=== PATIENT | male | born 1945 | race Caucasian/White ===

== ENCOUNTER 2016-08-18 23:01 | Emergency (ER) | payer MEDICARE, BC ==
[~2016-08-18 23:01] MED LIST: ACET500CAP PO; ALKA SELTZER COLD OR; AMIT100 PO; AMIT50 PO; AMPI500 PO; ASA5GR PO; ASAB PO; ASABAYER PO; B121000P IM/SC; BIOTIN10 MG PO; CAT1 PO; CETIRIZINE5 MG PO; CIP5 PO; CO Q-10100 MG PO; CYANO1000T PO; DIOVAN HC2 PO; DIOVAN320 MG PO; FENOFIBRIC ACID PO; FISH OIL1200 MG PO; FISH-EPA1000 MG PO; FLAG500TAB PO; FLOMAX4 PO; FLORASTOR250 MG PO; GLUCCHONDR PO; GLUCOPHAGE1000 MG PO; GLUCOSAMINE; GLUCOTRO10 PO; GLUCPH PO; HALF81 PO; HYDROCHLOROT12.5 MG PO; HYDROCHLOROT25 MG PO; INSNOV7030 SC; INSNOVN SC; KLONOPIN PO; KLOR-CON M2020 MEQ PO; LEVAQUIN5T PO; LOP25 PO; MAXIMUM D3 PO; METAMUCIL CAN7 OZ PO; METAMUCIL PO; METOPROLOL 50MG PO; METPAKSF PO; MIRAPEX1 MG PO; MUSCLE RELAXER OR; NASACORTAQ NAS; NEXIUM; NEXIUM20 M1 PO; NEXIUM40 PO; NIASPAN500 PO; NORCO1 TA2 PO; NORV5 PO; PARKINSON'S MED PO; PLAVIX PO; POTASSIUM; POTASSIUM OTC PO; POTASSIUM PO; PREV30 PO; PRIM50B PO; PRIMIDONE; PROSCAR5 PO; RED YEAS1 OR; SAW PALMETT2 PO; SAW PALMETTO PO; SEPTRA DS1 TAB PO; SIN25 PO; TOPXL25 PO; TOPXL50 PO; TRILIPIX135 MG PO; VITAMIN D1000 UNI1 PO; VITAMIN D31000 UNIT PO; WELLBUTRIN; Z300 PO; ZOL100 PO; ZOL50 PO; ZYRTEC ALLGY10 MG PO; [UNRECOGNIZED DRUG - CODE] PO; [UNRECOGNIZED DRUG - OTHER] OR; [UNRECOGNIZED DRUG - OTHER] PO; [UNRECOGNIZED DRUG - OTHER] PO; [UNRECOGNIZED DRUG - OTHER] PO
[2016-12-23] MEDS ORDERED: BUSPAR30 MG PO (13:55)
[2016-12-23] MEDS ORDERED: THERGRANM PO (14:00)
[2016-12-23] MEDS ORDERED: INSNOVR SC (14:02)
[2016-12-23] MEDS ORDERED: SYMBICORT 160/41 INH INH (14:03)
[2016-12-23] MEDS ORDERED: ANTIBIOTIC PO (14:08)
[2017-01-03] MEDS ORDERED: TOPXL50 PO (08:20)
[2017-01-03] MEDS ORDERED: L40 PO (08:24)
[2017-01-03] MEDS ORDERED: KDUR20 PO (08:25)
[2017-01-03] MEDS ORDERED: C5 PO (08:25)
[2017-01-03] MEDS ORDERED: NORCO1 TAB PO (08:25)
== END 2016-08-18 23:09 | disposition home or self-care (01) ==
LOC: ER 23:01
DX: M25.572 Pain in left ankle and joints of left foot (principal); J44.9 Chronic obstructive pulmonary disease, unspecified; I10 Essential (primary) hypertension; K21.9 Gastro-esophageal reflux disease without esophagitis; E11.9 Type 2 diabetes mellitus without complications; I25.10 Atherosclerotic heart disease of native coronary artery without angina pectoris; Z87.891 Personal history of nicotine dependence; Z88.8 Allergy status to other drugs, medicaments and biological substances; Z79.82 Long term (current) use of aspirin; Z79.899 Other long term (current) drug therapy; Z79.84 Long term (current) use of oral hypoglycemic drugs; Z79.4 Long term (current) use of insulin
CPT/HCPCS: 99283